=== PATIENT | female | born 2000 | race Caucasian/White ===

== ENCOUNTER 2020-04-24 02:50 | Outpatient (CLI) | payer BC, SELFPAY ==
[2020-04-24 09:48] LABS: Abs Immature Grans 0.03 10^3/uL (0.0-0.06); Absolute Basophil Count 0.03 10^3/uL (0.0-0.2); Absolute Eosinophil Count 0.09 10^3/uL (0.0-0.7); Absolute Lymphocyte Count 2.19 10^3/uL (1.2-3.4); Absolute Monocyte Count 0.46 10^3/uL (0.1-0.8); Absolute Neutrophil Count 5.61 10^3/uL (1.2-6.7); Basophils % 0.4; Eosinophils % 1.1; HCT 41.6 % (36.0-46.0); HGB 13.6 g/dL (11.2-15.7); Immature Grans % 0.4; MCHC 32.7 % (32.0-36.0); MCV 79.4 fL (80-95); MPV 9.3 fL (8.0-11.0); Monocytes % 5.5; Neutrophils % 66.6; Nucleated RBC 0 %; Platelet Count 334 10^3/uL (130-400); RBC 5.24 10^6/uL (3.93-5.22); RDW 13.3 % (11.7-14.6); RDW-SD 38.3 fL; WBC 8.41 10^3/uL (4.4-10.8)
[2020-04-24 11:01] LABS: Anion Gap 11.2 mmol/L (3-11); BUN 7 mg/dL (7-18); CO2 23.8 mmol/L (21.0-32.0); CREATININE 0.66 mg/dL (0.55-1.02); Calcium 9.2 mg/dL (8.5-10.1); Chloride 103 mmol/L (98-107); Glucose 115 mg/dL (74-106); Potassium 4.6 mmol/L (3.5-5.1); Sodium 138 mmol/L (136-145)
== END 2020-04-24 03:10 ==
PROVIDERS: Visit Provider Physician Assistant
DX: R53.83 Other fatigue (principal)
CPT/HCPCS: 36415; 80048; 84443; 85025